=== PATIENT | female | born 1965 | race Caucasian/White ===

== ENCOUNTER 2020-07-12 22:58 | Observation (INO) | payer BC ==
[~2020-07-12] VITALS: Ht 167.6 cm; Wt 97.1 kg
[2020-07-12] MEDS ORDERED: ACETAMINOPHEN 325 MG TAB PO ONE (23:30)
[2020-07-12] MEDS ORDERED: ONDANSETRON HCL INJ 2MG/ML 2ML 2 MG/ML VIAL IV PRN (23:30)
[2020-07-12] MEDS ORDERED: ASPIRIN 81 MG CHEW TAB PO ONE (23:30)
[2020-07-12] MEDS ORDERED: NITROGLYCERIN 2% OINT 1 GM PKT TOP ONE (23:30)
[2020-07-12] MEDS ORDERED: FAMOTIDINE 20 MG/2 ML VIAL IV ONE ×2 (23:30→23:40)
[2020-07-12] MEDS ORDERED: ASPIRIN 325 MG TAB ONE (23:32)
[2020-07-12] MEDS ORDERED: ONDANSETRON HCL INJ 2MG/ML 2ML 2 MG/ML VIAL ONE (23:40)
[2020-07-12] MEDS ORDERED: ACETAMINOPHEN 325 MG TAB ONE (23:40)
[2020-07-12] MEDS ORDERED: NITROGLYCERIN 2% OINT 1 GM PKT ONE (23:40)
[2020-07-13] MEDS ORDERED: ENALAPRILAT IV INJ 1.25 MG/ML VIAL IV PRN
[2020-07-13] MEDS ORDERED: ZOLPIDEM TARTRATE 5 MG TAB PO PRN
[2020-07-13] MEDS ORDERED: DIPHENHYDRAMINE HCL INJ 50 MG/ML VIAL IV PRN
[2020-07-13] MEDS ORDERED: MORPHINE SULFATE INJ 2 MG/ML SYR IV PRN
[2020-07-13] MEDS ORDERED: ONDANSETRON HCL INJ 2MG/ML 2ML 2 MG/ML VIAL IV PRN
[2020-07-13] MEDS ORDERED: ACETAMINOPHEN 325 MG TAB PO PRN
[2020-07-13] MEDS: FAMOTIDINE 20 MG TAB PO SCH ×2 (00:40→14:09)
[2020-07-13 01:50] VITALS: BP 141/81
[2020-07-13 02:50] VITALS: BP 141/81
[2020-07-13 07:19] LABS: CALCIUM 8.5 mg/dL (8.4-10.2); MAGNESIUM 2.1 MG/DL (1.3-2.1); PHOSPHORUS 3.2 MG/DL (2.3-4.7)
[2020-07-13 07:33] LABS: CREATINE KINASE 76 IU/L (29-168)
[2020-07-13 08:00] VITALS: BP 110/68
[2020-07-13] MEDS ORDERED: ASPIRIN 81 MG CHEW TAB PO ONE (08:00)
[2020-07-13 08:30] VITALS: BP 110/68
[2020-07-13] MEDS ORDERED: ASPIRIN 325 MG TAB EC PO SCH (09:00)
[2020-07-13 12:00] VITALS: BP 110/73
[2020-07-13 15:12] LABS: CREATINE KINASE MB 0.7 ng/mL (0-5.0)
[2020-07-13 15:25] LABS: CALCIUM 8.9 mg/dL (8.4-10.2); MAGNESIUM 3.8 MG/DL (1.3-2.1); PHOSPHORUS 3.4 MG/DL (2.3-4.7)
[2020-07-13 16:00] VITALS: BP 121/69
[2020-07-13] MEDS ORDERED: KETOROLAC TROMETHAMINE 30 MG/ML VIAL IV STA (17:31)
[2020-07-13] MEDS ORDERED: SIMVASTATIN 40 MG TAB PO SCH (21:00)
== END 2020-07-13 18:54 | disposition home or self-care (01) ==
LOC: FSED 23:22 → ERHOLD 07-13 00:33 → MED/SURG2 07-13 01:51
PROVIDERS: ADMIT Internal Medicine; ATTEND Internal Medicine
DX: R07.89 Other chest pain (principal); E66.9 Obesity, unspecified; Z68.34 Body mass index [BMI] 34.0-34.9, adult; E78.5 Hyperlipidemia, unspecified; Z20.822 Contact with and (suspected) exposure to COVID-19; M94.0 Chondrocostal junction syndrome [Tietze]
CPT/HCPCS: 36415; 71045; 80053; 80061; 82310; 82550; 82553; 83735; 84100; 84484; 85025; 93005; 93306; 99284; G0378; J1885; J2405; U0002